=== PATIENT | female | born 1970 | race Caucasian/White ===

== ENCOUNTER → 2016-11-16 | Outpatient (CLI) | payer MEDICAID ==
--- NOTE | 2016-11-16 13:58 | MA ---
Blastic Bilateral Digital Mammogram With Tomosynthesis Clinical Indications: Pain. Previous right breast reduction and left breast. Addition felt "increased density 4 o'clock right breast". Technique: Standard digital cephalocaudal and tomosynthesis mediolateral oblique projections are obt ained. An additional cc view is performed of the outer left breast. The digital images were processed by the [employer] computer aided detection system. Comparison: March 2013 and April 2009 Breast density: B; There are scattered fibroglandular densities. Findings: CAD was reviewed. No suspicious findings are identified. Impression: Negative mammogram. BI-RADS 1. Specifically no mammographic abnormality at the 4 o'clock right breast. Recommendation: Additional imaging with ultrasound at the 4 o'clock right breast where the patient p atient's clinician feels "increased density" we will perform this shortly. BI-RADS 0. Additional imaging right breast. [facility] will send a result letter to the patient. Negative mammography should not preclude additional workup of a clinically suspicious finding. The patient's information is entered into a reminder system with a target due date for her next mammo gram.
--- NOTE | 2016-11-16 14:44 | US ---
Right Breast Sonogram, complete History: Thickening 4 o'clock, felt by referring physician Comparison: Diagnostic mammogram earlier Findings: On my physical examination I could not feel a thickening at the 4 o'clock radial. The axill a was also negative on physical exam. Ultrasound of the 4 o'clock radial demonstrates only normal sanju ast parenchyma. No axillary adenopathy is identified. Impression: Negative mammogram, ultrasound and physical examination. Recommendation: The patient should be managed clinically. Recommend screening mammogram in one year. Results and recommendation discussed with the patient in detail who was urged to follow-up with Dr. Jonathan emneses. BI-RADS 1 negative.
== END ==
LOC: FIMAGING 13:15
PROVIDERS: ATTEND Family Medicine
DX: N64.4 Mastodynia (principal)
CPT/HCPCS: G0204; G0279

== ENCOUNTER → 2017-12-20 | Outpatient (CLI) | payer MEDICAID | LOC: FIMAGING 14:01 | PROVIDERS: ATTEND Family Medicine | DX: Z12.31 Encounter for screening mammogram for malignant neoplasm of breast (principal); Z80.3 Family history of malignant neoplasm of breast ==

== ENCOUNTER → 2019-04-07 | Outpatient (CLI) | payer MEDICAID | LOC: FIMAGING 11:52 ==